=== PATIENT | male | born 1985 | race Caucasian/White ===

== ENCOUNTER 2023-01-18 10:59 | Inpatient (IN) | payer BC ==
[~2023-01-18] VITALS: Ht 177.8 cm; Wt 90.7 kg
[2023-01-18 11:39] LABS: BASOPHILS ABSOLUTE AUTO 0.07 K/mm3 (0.00-0.23); BASOPHILS PERCENT AUTO 1 % (0-2); EOSINOPHILS ABSOLUTE AUTO 0.13 K/mm3 (0.00-0.68); EOSINOPHILS PERCENT AUTO 1 % (0-6); Hematocrit 43.1 % (37.0-53.0); Hemoglobin 14.5 g/dL (13.5-17.5); IMMATURE GRAN ABSOLUTE AUTO 0.12 K/mm3 (0.00-0.10); IMMATURE GRAN PERCENT AUTO 1 % (0-1); LYMPHOCYTES ABSOLUTE AUTO 1.62 K/mm3 (0.84-5.20); LYMPHOCYTES PERCENT AUTO 12 % (21-46); MONOCYTES ABSOLUTE AUTO 0.51 K/mm3 (0.16-1.47); MONOCYTES PERCENT AUTO 4 % (4-13); Mean Corpuscular HGB 30.6 pg (26.0-34.0); Mean Corpuscular HGB Conc 33.6 g/dL (31.5-36.5); Mean Corpuscular Volume 91 fL (80-100); Mean Platelet Volume 10.8 fL (9.1-12.4); NEUTROPHILS ABSOLUTE AUTO 10.85 K/mm3 (1.96-9.15); NEUTROPHILS PERCENT AUTO 82 % (41-73); Platelet Count 282 K/mm3 (150-400); RDW Coefficient Variation 12.8 % (11.7-14.2); RDW Standard Deviation 43.1 fL (35.1-46.3); Red Blood Cell Count 4.74 M/mm3 (4.30-5.90)
[2023-01-18 12:01] LABS: Albumin, Blood 3.8 g/dL (3.4-5.0); Albumin/Globulin Ratio 0.8 (0.8-1.8); Bilirubin, Total 0.2 mg/dL (0.1-1.0); Bun/Creatinine Ratio 22.6 (12.0-20.0); Calcium, Blood 9.1 mg/dL (8.5-10.1); Creatinine, Blood 0.75 mg/dL (0.60-1.20); Globulin, Blood 4.5 g/dL (2.2-4.0); Potassium, Blood 4.3 mmol/L (3.5-5.5); Total Protein, Blood 8.3 g/dL (6.4-8.2)
[2023-01-18 15:00] LABS: Source, Urine Clean Catch
[2023-01-18 15:09] LABS: Appearance, Urine Clear (Clear); Bilirubin, Urine Neg (Neg); Blood, Urine Neg (Neg); Color, Urine Yellow (P-Yellow); Glucose Qualitative, Urine Neg (Neg); Ketones, Urine Neg (Neg); Leukocyte Esterase, Urine Neg (Neg); Nitrite, Urine Neg (Neg); Protein, Urine 1+ (Neg); Specific Gravity, Urine 1.015 (1.003-1.022); Urobilinogen, Urine NORM (Normal)
--- NOTE | 2023-01-18 18:01 | NUR ---
PT ARRIVED TO UNIT AT APROX 1730 FROM ER, [place] IND GROM GURNEY TO BED. PT W/ABD PAIN DESCRIBED "DULL ACHE" IN MID LOWER ABD, TENDER AND GUARDED W/PALPATION. PT DENIES N/V. NPO AT THIS TIME. TEMP 101.4 UPON ARRIVAL, ORAL TEMP 98.6 AT THIS TIME. PLAN IS TO CONTINUE IVF AND ABX AT THIS TIME.
[2023-01-19 04:40] LABS: BASOPHILS ABSOLUTE AUTO 0.05 K/mm3 (0.00-0.23); BASOPHILS PERCENT AUTO 0 % (0-2); EOSINOPHILS ABSOLUTE AUTO 0.09 K/mm3 (0.00-0.68); EOSINOPHILS PERCENT AUTO 1 % (0-6); Hematocrit 36.1 % (37.0-53.0); IMMATURE GRAN PERCENT AUTO 1 % (0-1); LYMPHOCYTES ABSOLUTE AUTO 1.09 K/mm3 (0.84-5.20); LYMPHOCYTES PERCENT AUTO 6 % (21-46); MONOCYTES ABSOLUTE AUTO 0.85 K/mm3 (0.16-1.47); MONOCYTES PERCENT AUTO 5 % (4-13); Mean Corpuscular HGB 30.2 pg (26.0-34.0); Mean Corpuscular HGB Conc 33.2 g/dL (31.5-36.5); Mean Corpuscular Volume 91 fL (80-100); Mean Platelet Volume 10.5 fL (9.1-12.4); NEUTROPHILS ABSOLUTE AUTO 16.65 K/mm3 (1.96-9.15); NEUTROPHILS PERCENT AUTO 88 % (41-73); Platelet Count 254 K/mm3 (150-400); RDW Coefficient Variation 13.2 % (11.7-14.2); RDW Standard Deviation 44.8 fL (35.1-46.3); Red Blood Cell Count 3.98 M/mm3 (4.30-5.90); White Blood Cell Count 18.83 K/mm3 (4.00-11.30)
[2023-01-19 05:05] LABS: Bun/Creatinine Ratio 18.4 (12.0-20.0); Calcium, Blood 8.6 mg/dL (8.5-10.1); Creatinine, Blood 0.76 mg/dL (0.60-1.20); Potassium, Blood 3.7 mmol/L (3.5-5.5)
--- NOTE | 2023-01-19 07:27 | NUR ---
SHIFT SUMMARY NO ACUTE CHANGES OVERNIGHT. PT REPORTS ABD PAIN (PAIN LEVEL 5-8/10) T/O SHIFT. PAIN MANGED WITH 1MG DILAUDID. PT ALSO REPORTS NAUSEA DENIES VOMITING. MEDICATED WITH ZOFRAN. IND IN ROOM. IV FLUIDS INFUSING. NPO. OK FOR ICE CHIPS AND SIPS. BOWEL REST. PT ALSO REPORTS H/A, MEDICATED WITH TYLENOL. CALL LIGHT WITHIN REACH. REPORT GIVEN TO SAIRA RODRIGUEZ.
--- NOTE | 2023-01-19 18:15 | NUR ---
SHIFT SUMMARY PT A&OX4, VSS/2LNC/BIOX, LR @ 150 MLS/HR AND ABX Q6, PAIN MANAGED WITH DILAUDID AND TYLENOL. NPO/SIPS&CHIPS-ZOFRAN GIVEN X1. VOIDING WELL. AMB INDEPENDENT IN ROOM/TO BRP/HALLWAY WITH FAMILY. SHOWERED TODAY. WILL REPORT TO ONCOMING NOC MICHAEL.
--- NOTE | 2023-01-20 06:00 | NUR ---
SHIFT SUMMARY NO ACUTE CHANGES OVERNIGHT. PT REPORTS ABD PAIN, MORE PAIN TOWARDS LEFT SIDE THIS MORNING. PAIN MANAGED WITH 1MG DILAUDID. PT ALSO REPORTS HEADACHE. MEDICATED TYLENOL. PT ALSO HAD MILD NAUSEA EPISODED, MEDICATED WITH 4MG ZOFRAN X1. IV FLUIDS INFUSING. NPO, OK FOR ICE CHIPS AND SIPS. DENIES VOMITING. IV ABX ADMINSTERED. AOX4. IND IN ROOM. VOIDING. PT DIDN'T USE HIS CPAP TONIGHT BUT AGREED TO WEAR O2 NASAL CANULA. PT ON 3-4L NASAL CANULA, SATS ON LOW 90'S. PT DENIES CP AND SOB. VSS. CALL LIGHT WITHIN REACH. WILL PROVIDE REPORT ONCOMING NURSE.
[2023-01-20 07:11] LABS: BASOPHILS ABSOLUTE AUTO 0.03 K/mm3 (0.00-0.23); BASOPHILS PERCENT AUTO 0 % (0-2); EOSINOPHILS PERCENT AUTO 1 % (0-6); Hematocrit 36.1 % (37.0-53.0); Hemoglobin 12.1 g/dL (13.5-17.5); IMMATURE GRAN ABSOLUTE AUTO 0.08 K/mm3 (0.00-0.10); IMMATURE GRAN PERCENT AUTO 1 % (0-1); LYMPHOCYTES ABSOLUTE AUTO 1.09 K/mm3 (0.84-5.20); LYMPHOCYTES PERCENT AUTO 7 % (21-46); MONOCYTES ABSOLUTE AUTO 0.63 K/mm3 (0.16-1.47); MONOCYTES PERCENT AUTO 4 % (4-13); Mean Corpuscular HGB 30.6 pg (26.0-34.0); Mean Corpuscular HGB Conc 33.5 g/dL (31.5-36.5); Mean Corpuscular Volume 91 fL (80-100); Mean Platelet Volume 10.5 fL (9.1-12.4); NEUTROPHILS ABSOLUTE AUTO 14.29 K/mm3 (1.96-9.15); NEUTROPHILS PERCENT AUTO 88 % (41-73); Platelet Count 249 K/mm3 (150-400); RDW Coefficient Variation 12.9 % (11.7-14.2); Red Blood Cell Count 3.96 M/mm3 (4.30-5.90); White Blood Cell Count 16.22 K/mm3 (4.00-11.30)
[2023-01-20 07:32] LABS: Bun/Creatinine Ratio 15.5 (12.0-20.0); Calcium, Blood 8.8 mg/dL (8.5-10.1); Creatinine, Blood 0.71 mg/dL (0.60-1.20); Magnesium, Blood 2.1 mg/dL (1.6-2.4); Phosphorus, Blood 2.1 mg/dL (2.5-4.9); Potassium, Blood 3.9 mmol/L (3.5-5.5)
--- NOTE | 2023-01-20 12:29 | NUR ---
PT'S O2 SATS 86-87 ON RA, PT CURRENTLY ON 4L O2 VIA NC, PT ENCOURAGED TO WEAR HIS CPAP WHEN GOING TO SLEEP, INCENTIVE SPIROMETER GIVEN W/ INSTRUCTIONS, PT DEMONSTRATED PROPER AND EFFECTIVE USE, GOT UP AND HAD A SHOWER EARLIER, STATES H/A IS BETTER AND ABD PAIN is "GOOD FOR NOW" CONT. TO MONITOR FOR ANY CHANGES.
--- NOTE | 2023-01-20 18:39 | NUR ---
SUMMARY PT C/O ABD PAIN T/O SHIFT, DENIES ANY NAUSEA, DILAUDID GIVEN FOR PAIN PER EMAR, AMBULATES INDEPENDENTLY TO THE BATHROOM, REPORTS PASSING GAS, NO BM TODAY, PT ON 4L O2 VIA NC THIS AM AND EARLY AFTERNOON, SATS 92-93%, 86-87% ON RA, PT HAS BEEN USING IS AND ENCOURAGED TO USE CPAP WHEN GOING TO SLEEP, CURRENTLY ON 3L O2 VIA NC, CONT. W/ IVF, ABX AND BOWEL REST PER DR. STEWART, NO ACUTE CHANGES THIS SHIFT.
[2023-01-21 05:18] LABS: BASOPHILS ABSOLUTE AUTO 0.03 K/mm3 (0.00-0.23); BASOPHILS PERCENT AUTO 0 % (0-2); EOSINOPHILS ABSOLUTE AUTO 0.18 K/mm3 (0.00-0.68); EOSINOPHILS PERCENT AUTO 1 % (0-6); Hematocrit 34.3 % (37.0-53.0); Hemoglobin 11.6 g/dL (13.5-17.5); IMMATURE GRAN ABSOLUTE AUTO 0.09 K/mm3 (0.00-0.10); IMMATURE GRAN PERCENT AUTO 1 % (0-1); LYMPHOCYTES ABSOLUTE AUTO 0.92 K/mm3 (0.84-5.20); LYMPHOCYTES PERCENT AUTO 6 % (21-46); MONOCYTES ABSOLUTE AUTO 0.84 K/mm3 (0.16-1.47); MONOCYTES PERCENT AUTO 6 % (4-13); Mean Corpuscular HGB 30.1 pg (26.0-34.0); Mean Corpuscular HGB Conc 33.8 g/dL (31.5-36.5); Mean Corpuscular Volume 89 fL (80-100); Mean Platelet Volume 10.1 fL (9.1-12.4); NEUTROPHILS ABSOLUTE AUTO 12.57 K/mm3 (1.96-9.15); NEUTROPHILS PERCENT AUTO 86 % (41-73); Platelet Count 241 K/mm3 (150-400); RDW Standard Deviation 42.5 fL (35.1-46.3); Red Blood Cell Count 3.85 M/mm3 (4.30-5.90); White Blood Cell Count 14.63 K/mm3 (4.00-11.30)
[2023-01-21 05:42] LABS: Bun/Creatinine Ratio 14.5 (12.0-20.0); Calcium, Blood 8.6 mg/dL (8.5-10.1); Creatinine, Blood 0.69 mg/dL (0.60-1.20); Magnesium, Blood 2.1 mg/dL (1.6-2.4); Phosphorus, Blood 1.8 mg/dL (2.5-4.9); Potassium, Blood 3.5 mmol/L (3.5-5.5)
--- NOTE | 2023-01-21 05:43 | NUR ---
SHIFT NOTE PATIENT SLEPT FOR SOME OF THE NIGHT, ALERT AND ORIENTED, ABLE TO MAKE NEEDS KNOWN. ABD PAIN, N/V, AND HEADACHE TREATED PER JAN. ICE CHIPS ONLY. BS ACTIVE, NO BM REPORTED THIS SHIFT. IV INFUSING AND WNL. NO OTHER ISSUES TO REPORT.
--- NOTE | 2023-01-21 16:25 | NUR ---
SHIFT SUMMARY PT REPORTS PASSING FLATUS. ADVANCED TO CLEAR LIQUIDS, TOLERATED WELL. REPORTED NO INCREASE IN PAIN WITH EATING. PAIN MANAGED PER EMAR. UP IN ROOM TO SHOWER TODAY. DENIES SOB DURING SHIFT. USES CALL LIGHT APPROPRIATLY.
--- NOTE | 2023-01-22 04:44 | NUR ---
SUMMARY PT IS AOX4 HERE FOR DIVERTIC W/ PERF. BEING MANAGED W/ ABX, AND PAIN CONTROL. CURRENTLY ON CL DIET, TOLERATES SMALL SIPS. MEDICATED FOR NAUSEA X1 THIS SHIFT. PAIN WELL MANAGED W/ TYLENOL AND DILAUDED. AMBULATORY IN HALLS INDEP.VOIDS EASILY REPORTS PASSING GAS. VSS, CALL LIGHT IN REACH.
[2023-01-22 06:06] LABS: Bun/Creatinine Ratio 12.7 (12.0-20.0); Calcium, Blood 8.7 mg/dL (8.5-10.1); Creatinine, Blood 0.63 mg/dL (0.60-1.20); Phosphorus, Blood 3.6 mg/dL (2.5-4.9); Potassium, Blood 3.5 mmol/L (3.5-5.5)
--- NOTE | 2023-01-22 17:39 | NUR ---
SHIFT SUMMARY PT TOLERATING FULL LIQUID DIET. REPORTS SOME NAUSEA BEFORE DINNER, MEDICATION PER EMAR. PT PASSING FLATUS, REPORTS TWO LOOSE STOOLS THAT WERE UNCOMFORTABLE TO PASS. AMBULATING FREQUENTLY IN HALLS. REPORTS IMPROVEMENT TO PAIN. PLAN IS TO CONTINUE IV ABX.
--- NOTE | 2023-01-22 22:24 | NUR ---
PT IN BED, CPAP IN PLACE, CONTINUOUS BIOX ON - SATS WNL. CALL LIGHT WITHIN REACH. BED IN LOW POSITION.
--- NOTE | 2023-01-23 04:15 | NUR ---
SHIFT SUMMARY - NO ACUTE CHANGES THROUGHOUT THIS SHIFT. PT DENIED HAVING ANY EPISODES OF DIARRHEA TONIGHT. PT DENIES ANY URINARY COMPLICATIONS. PT HAS BEEN UP INDEPENDENTLY IN THE ROOM. PT TOLERATED PO FLUIDS, DENIED COMPLICATIONS. PT REPORTED MILD NAUSEA AT THE BEGINNING OF THE SHIFT, DECLINED NAUSEA MEDICATIONS. PT MEDICATED FOR PAIN - SEE EMAR - WITH GOOD RELIEF. PT DENIED HEADACHE, CHEST PAIN, SOB, OR NUMBNESS AND TINGLING. PT SLEPT FOR APPX 3-4 HOURS WITH CPAP ON, CONTINUOUS BIOX ON - SATS WNL ON RA. FLUIDS AT BEDSIDE. CALL LIGHT WITHIN REACH. BED IN LOW POSITION. WILL CONTINUE TO MONITOR UNTIL AM SHIFT CHANGE.
[2023-01-23] MEDS ORDERED: AMOCLA875 PO (07:53)
[2023-01-23] MEDS ORDERED: HYDR1TAB94 PO (07:54)
--- NOTE | 2023-01-23 10:15 | NUR ---
DISCHARGE SUMMARY PATIENT ALERT, ORIENTED, AND INDEPENDENT IN ROOM. TOLERATING FULL LIQUID DIET. NO NAUSEA OR VOMITING. REPORTS SOME DIARRHEA. PAIN MANAGED WITH PO PAIN PILLS. DR STEWART TO ROOM TO EXAMINE PATIENT. DISCHARGE ORDERS WERE GIVEN. DISCHARGE EDUCATION GIVEN ON NEW MEDS, DIET, ACTIVITY, SIGNS/SYMPTOMS TO CALL OR RETURN TO ER, AND FOLLOW UP APPT WITH DR STEWART. IV DC'D WNL. PATIENT LEFT UNIT AT 1000 VIA WHEELCHAIR WITH SPOUSE FOR HOME.
== END 2023-01-23 10:31 | disposition home or self-care (01) | DRG 392 ==
LOC: ER 10:59 → SURS 15:23 → ERHOLD 15:23 → SURS 17:20
PROVIDERS: Physician Assistant; ADMIT Surgery
DX: K57.20 Diverticulitis of large intestine with perforation and abscess without bleeding (principal); E83.39 Other disorders of phosphorus metabolism; K59.00 Constipation, unspecified; I10 Essential (primary) hypertension; E78.5 Hyperlipidemia, unspecified; F10.10 Alcohol abuse, uncomplicated; Z79.899 Other long term (current) drug therapy
CPT/HCPCS: 36415; 74177; 80048; 80053; 83690; 83735; 84100; 85025; 94660; 94762; 96361; 96374-59; 96375; 96376; 99285-25; A9270; J0295; J1170; J1650; J1885; J2270; J2405; J7060; J7120; J7121; Q9967

== ENCOUNTER 2023-04-23 07:39 | Day surgery (SDC) | payer BC ==
[~2023-04-23] VITALS: Ht 177.8 cm; Wt 91.2 kg
[~2023-04-23 07:39] MED LIST: AMOCLA875 PO; HYDR1TAB94 PO
[2023-04-23] MEDS ORDERED: ATOR40TA PO (08:12)
[2023-04-23] MEDS ORDERED: LISI20 PO (08:12)
[2023-04-23 10:46] VITALS: BP 120/84
== END 2023-04-23 10:15 | disposition home or self-care (01) ==
LOC: ORSCSDS 07:39
PROVIDERS: Surgery
PROC: 0DBN8ZX Excision of Sigmoid Colon, Via Natural or Artificial Opening Endoscopic, Diagnostic (ICD-10-PCS; principal; 2023-04-23 08:45)
DX: K57.30 Diverticulosis of large intestine without perforation or abscess without bleeding (principal); Z87.19 Personal history of other diseases of the digestive system; D12.5 Benign neoplasm of sigmoid colon; K63.5 Polyp of colon; E78.5 Hyperlipidemia, unspecified; I10 Essential (primary) hypertension; Z87.891 Personal history of nicotine dependence; Z79.899 Other long term (current) drug therapy
CPT/HCPCS: 88305; J2704; J7120